=== PATIENT | male | born 1960 | race Caucasian/White ===

== ENCOUNTER → 2017-11-10 08:15 | Outpatient (POV) | payer OTHER, SELFPAY | PROVIDERS: Visit Provider Nurse Practitioner Acute Care | DX: Z00.00 Encounter for general adult medical examination without abnormal findings (principal) ==

== ENCOUNTER → 2018-04-20 10:02 | Outpatient (POV) | payer OTHER, SELFPAY ==
--- NOTE | 2018-04-20 10:10 | XR_ITS ---
XR knee LT 3V HISTORY: ITS.REASON: LEFT KNEE PAIN ORDERING PHYSICIAN: Concepción Russell PATIENT AGE: 57 years COMPARISON: None FINDINGS: No fracture or dislocation. No lytic or blastic change. Normal mineralization. No significant arthritic changes evident. No other significant findings. Incidental note is made of accessory center of ossification at the tibial tuberosity IMPRESSION: Negative Knee
== END ==
PROVIDERS: PCP Family Medicine; Visit Provider Nurse Practitioner Acute Care
DX: M25.562 Pain in left knee (principal)
CPT/HCPCS: 73562

== ENCOUNTER → 2018-04-27 07:44 | Outpatient (CLI) | payer OTHER, SELFPAY ==
--- NOTE | 2018-04-27 07:59 | US_ITS ---
US abdomen limited History:Right upper quadrant pain, abnormal liver function Ordering Physician:Concepción Russell Patient Age: 57 years Comparison:None Findings: Pancreas:Unremarkable. No obvious mass or abnormal fluid collection. No ductal dilatation Liver:There is a 15 x 15 mm hypoechoic area within the right hepatic lobe anteriorly not significantly changed. This is nonspecific. Right Kidney:Unremarkable. Normal size and echogenicity. No hydronephrosis Gallbladder:No gallstones, gallbladder wall thickening, pericholecystic fluid, or biliary dilatation. Small amount sludge versus concentrated bile noted in the gallbladder Impression: 1. No gallstones. Small amount of gallbladder sludge versus concentrated bile. No wall thickening or pericholecystic or biliary dilatation. 2. Stable hypoechoic lesion of the liver nonspecific
== END ==
PROVIDERS: PCP Family Medicine; Visit Provider Nurse Practitioner Acute Care
DX: R10.11 Right upper quadrant pain (principal); R94.5 Abnormal results of liver function studies; R93.3 Abnormal findings on diagnostic imaging of other parts of digestive tract
CPT/HCPCS: 76705

== ENCOUNTER → 2018-12-24 14:13 | Outpatient (CLI) | payer OTHER, SELFPAY ==
[2018-12-24 15:27] LABS: Anion Gap 16.7 mEq/L (5-15); Blood Urea Nitrogen 21 mg/dL (7-18); Calcium 9.8 mg/dL (8.5-10.1); Carbon Dioxide 24 mmol/L (21.0-32.0); Chloride 105 mmol/L (98-107); Creatinine,Serum 1.24 mg/dL (0.70-1.30); Estimated Glomerular Filt Rate 60 ml/min (>60); GFR (African American) 73 ML/MIN (>60); Glucose 101 mg/dL (74-106); Potassium 3.7 mmoL/L (3.5-5.1); Sodium 142 mmol/L (136-145)
== END ==
PROVIDERS: Visit Provider Internal Medicine Cardiovascular Disease
DX: R42 Dizziness and giddiness (principal); I25.10 Atherosclerotic heart disease of native coronary artery without angina pectoris; E78.49 Other hyperlipidemia; I11.9 Hypertensive heart disease without heart failure
CPT/HCPCS: 36415; 80048

== ENCOUNTER → 2019-11-01 16:19 | Outpatient (POV) | payer OTHER, SELFPAY | PROVIDERS: PCP Nurse Practitioner Family; Visit Provider Nurse Practitioner Family | DX: Z00.00 Encounter for general adult medical examination without abnormal findings (principal) ==

== ENCOUNTER → 2020-02-29 12:55 | Outpatient (POV) | payer OTHER, SELFPAY | PROVIDERS: PCP Family Medicine; Visit Provider Physician Assistant | DX: Z00.00 Encounter for general adult medical examination without abnormal findings (principal) ==

== ENCOUNTER → 2020-04-11 13:13 | Outpatient (POV) | payer OTHER, SELFPAY | PROVIDERS: PCP Family Medicine; Visit Provider Dermatology | DX: Z00.00 Encounter for general adult medical examination without abnormal findings (principal) ==

== ENCOUNTER → 2020-05-09 07:59 | Outpatient (POV) | payer OTHER, SELFPAY | PROVIDERS: Visit Provider Dermatology | DX: Z00.00 Encounter for general adult medical examination without abnormal findings (principal) ==

== ENCOUNTER → 2020-05-30 08:07 | Outpatient (POV) | payer OTHER, SELFPAY | PROVIDERS: Visit Provider Dermatology | DX: Z00.00 Encounter for general adult medical examination without abnormal findings (principal) ==

== ENCOUNTER → 2020-09-05 11:12 | Outpatient (POV) | payer OTHER, SELFPAY | PROVIDERS: Visit Provider Dermatology | DX: Z00.00 Encounter for general adult medical examination without abnormal findings (principal) ==

== ENCOUNTER → 2020-11-28 09:10 | Outpatient (POV) | payer OTHER, SELFPAY | PROVIDERS: Visit Provider Dermatology | DX: Z00.00 Encounter for general adult medical examination without abnormal findings (principal) ==

== ENCOUNTER → 2021-01-02 08:16 | Outpatient (POV) | payer OTHER, SELFPAY | PROVIDERS: Visit Provider Dermatology | DX: Z00.00 Encounter for general adult medical examination without abnormal findings (principal) ==

== ENCOUNTER → 2021-01-09 10:14 | Outpatient (CLI) | payer OTHER, SELFPAY ==
--- NOTE | 2021-01-09 10:18 | XR_ITS ---
PROCEDURE: XR SHOULDER RT MIN 2V CLINICAL INDICATION: bicept pain COMPARISON: No exams were available for comparison FINDINGS: No fracture or dislocation. No lytic or blastic change. There is normal mineralization. Mild osteoarthritic change involves the right acromioclavicular joint. Other findings:None. IMPRESSION: No acute finding. Mild osteoarthritis right AC joint Dictated by: Evangelist Barnes MD 01/09/2021 12:21 Evangelist Barnes MD in [place] 01/09/2021 12:21
== END ==
PROVIDERS: PCP Family Medicine; Visit Provider Orthopaedic Surgery
DX: M25.519 Pain in unspecified shoulder (principal)
CPT/HCPCS: 73030

== ENCOUNTER → 2021-02-13 08:22 | Outpatient (POV) | payer OTHER, SELFPAY | PROVIDERS: Visit Provider Dermatology | DX: Z00.00 Encounter for general adult medical examination without abnormal findings (principal) ==

== ENCOUNTER → 2021-04-17 07:51 | Outpatient (POV) | payer OTHER, SELFPAY | PROVIDERS: Visit Provider Dermatology | DX: Z00.00 Encounter for general adult medical examination without abnormal findings (principal) ==

== ENCOUNTER → 2021-07-17 15:17 | Outpatient (POV) | payer OTHER, SELFPAY | PROVIDERS: Visit Provider Dermatology | DX: Z00.00 Encounter for general adult medical examination without abnormal findings (principal) ==

== ENCOUNTER 2021-08-23 17:05 | Emergency (ER) | payer OTHER, SELFPAY ==
[2021-08-23 17:20] VITALS: BP 0/0; PULSE 0; RESP 0; TEMP -17.7; TEMP 0; O2SAT 0
== END 2021-08-23 17:21 | disposition home or self-care (01) ==
LOC: UTC 17:09
PROVIDERS: Emergency Provider Nurse Practitioner Family; PCP Family Medicine
DX: Z53.21 Procedure and treatment not carried out due to patient leaving prior to being seen by health care provider (principal)

== ENCOUNTER → 2021-08-23 17:17 | Outpatient (CLI) | payer OTHER, SELFPAY | PROVIDERS: PCP Family Medicine; Visit Provider Nurse Practitioner Family | DX: Z20.822 Contact with and (suspected) exposure to COVID-19 (principal) | CPT/HCPCS: C9803; U0003; U0005 ==

== ENCOUNTER 2021-08-30 14:06 | Emergency (ER) | payer OTHER, SELFPAY ==
[2021-08-30 15:57] VITALS: BP 143/81; PULSE 64; RESP 18; TEMP 36.7; O2SAT 98; BMI 31.6
--- NOTE | 2021-08-30 16:02 | HMH.EDUTC ---
[facility] [place] Disposition Clinical Impression: Cellulitis and abscess of lower extremity Disposition: Home, Self-Care Condition on Discharge: Good Instructions: Cellulitis, Clindamycin, Mupirocin Additional Instructions: *Start antibiotic(s) immediately and be sure to take as ordered for the FULL length of time although you may be feeling better or start to see improvement in the next 24-48 hours *Monitor closely. Outlined redness so that you can monitor easier. Follow up immediately for new or worsening symptoms including but not limited to redness, swelling, streaking from site fever or chills. *Warm compress 15 minutes 3-4 times day *Never squeeze or pop these on your own. Seek immediate medical attention next time this occurs *Monitor Temp. Tylenol every 4 hours as needed and ibuprofen every 6 hours as needed (as long as your primary care doctor has told you that it is ok to take both. For fever, aches, pain. ER if no less that 101 despite Tylenol and ibuprofen Follow up with your family doctor/primary care physician in the next 48-72 hours if no improvement Return if needed Straight to ER if any life threatening symptoms Prescriptions: clindamycin HCL [Cleocin HCl] 300 mg PO TID 7 Days #21 cap Transmission Status: Received by [facility] Mupirocin Calcium [Mupirocin 2% Cream 15gm] 1 applicatio TP TID 10 Days #15 gm Transmission Status: Received by [facility] Referrals: Kin Ren MD [Primary Care Provider] - As needed Time of Disposition: 16:34 Medical Decision Making - Tye Inquiry Pt receiving controlled substance: No Tye was queried for this patient: No Vital Signs: 08/30/21 15:57 Temperature 98.0 F Temperature Source Oral Pulse Rate [Right Radial] 64 Respiratory Rate 18 Blood Pressure [Right Arm] 143/81 H Blood Pressure Mean [Right Arm] 101 Blood Pressure Source [Right Arm] Automatic Cuff Blood Pressure Position [Right Arm] Sitting 02 Sat by Pulse Oximetry 98 Oxygen Delivery Method Room Air Orders (Tests/Meds): ORDERS Category Date Time Status Wound Culture and Gram Stain Stat Micro 08/30/21 16:36 Received [facility] [place] HPI - General Stated complaint: R leg bite/rash Time Seen by Provider: 08/30/21 16:02 Mode of Arrival: Ambulatory Source of Information: Patient Limitations: No Limitations Description of Symptoms (Recalled from Triage Doc. by RN): Pt stated that he has had a bite on back of right calf for the past 4 days. HEENT Symptoms (Recalled from RN notes): No Resp Symptoms (Recalled from RN notes): No Skin Symptoms (Recalled from RN notes): Yes (bite) MS Symptoms (Recalled from RN notes): No Functional Status (Recalled from RN notes): n/a - Related Data Home Medications Medication Instructions Recorded Confirmed aspirin 81 mg tablet,delayed 81 mg PO DAILY tab 11/12/17 07/03/21 release omega-3 fatty acids 500 mg capsule 1,000 mg PO DAILY cap 11/12/17 07/03/21 Saccharomyces boulardii 250 mg 250 mg PO DAILY cap 11/13/17 07/03/21 capsule psyllium husk (aspartame) 3.4 3.4 g PO DAILY 11/13/17 07/03/21 gram/5.8 gram oral powder vitamin E 800 unit capsule 800 unit PO DAILY cap 11/13/17 07/03/21 Alpha Lipoic Acid 400 mg PO DAILY 06/29/18 07/03/21 Lactobacills gasseri-Bifidobac cap PO DAILY cap 12/04/18 07/03/21 bifidum,longum 1.5 billion cell capsule bempedoic acid 180 mg-ezetimibe 10 1 tab PO DAILY 01/09/21 07/03/21 mg tablet hydroxychloroquine 200 mg tablet 200 mg PO DAILY 01/09/21 07/03/21 simvastatin 40 mg tablet 40 mg PO DAILY 01/09/21 07/03/21 ezetimibe 10 mg tablet 10 mg PO DAILY tab 06/01/21 07/03/21 Previous Rx's Medication Instructions Recorded propranolol 60 mg capsule,24 See Rx Instructions .ROUTE 02/05/21 hr,extended release .COMPLEX #90 cap losartan 100 mg tablet See Rx Instructions .ROUTE 05/09/21 .COMPLEX #90 tab hydrochlorothiazide 12.5 mg capsule See Rx Instructions .ROUTE 08/06/21 .COMPLEX #30 cap Mupirocin Calcium [
[2021-08-30 17:30] VITALS: BP 143/81; PULSE 64; RESP 18; TEMP 36.7; O2SAT 98
== END 2021-08-30 17:30 | disposition home or self-care (01) ==
PROVIDERS: Emergency Provider Nurse Practitioner; PCP Family Medicine
DX: L03.115 Cellulitis of right lower limb (principal); Z88.0 Allergy status to penicillin
CPT/HCPCS: 87070; 87077; 87186; 87205; 99202; G0463

== ENCOUNTER → 2021-10-16 08:01 | Outpatient (POV) | payer OTHER, SELFPAY | PROVIDERS: Visit Provider Dermatology | DX: Z00.00 Encounter for general adult medical examination without abnormal findings (principal) ==

== ENCOUNTER → 2021-10-17 12:33 | Outpatient (CLI) | payer OTHER, SELFPAY ==
[2021-10-18 09:37] LABS: Covid-19 Nasal PCR Sendout Lex POSITIVE
== END ==
PROVIDERS: PCP Family Medicine; Visit Provider Nurse Practitioner
DX: U07.1 COVID-19 (principal)
CPT/HCPCS: C9803; U0004; U0005

== ENCOUNTER → 2022-01-22 09:00 | Outpatient (POV) | payer OTHER, SELFPAY | PROVIDERS: Visit Provider Dermatology | DX: Z00.00 Encounter for general adult medical examination without abnormal findings (principal) ==

== ENCOUNTER → 2022-05-31 09:37 | Outpatient (CLI) | payer OTHER, SELFPAY ==
[2022-05-31 10:17] LABS: Alanine Aminotransferase 37 U/L (12-78); Albumin Level 4.6 g/dl (3.5-5.0); Alkaline Phosphatase 55 U/L (38-126); Aspartate Amino Transferase 32 U/L (17-59); Bilirubin,Direct 0.2 mg/dl (0.0-0.4); Bilirubin,Indirect 0.4 mg/dL (0.0-0.9); Bilirubin,Total 0.6 mg/dl (0.2-1.3); Bilirubin,Unconjugated 0.4 mg/dL (0.0-1.1); Chol/HDL Ratio 2.5 (1-3.5); Cholesterol 114 mg/dl (140-200); HDL Cholesterol 46 mg/dl (40-60); Triglycerides 95 mg/dl (30-150); VLDL Cholesterol 19 mg/dL (0-40)
[2022-05-31 10:28] LABS: Direct LDL Cholesterol 51.81 mg/dL (100-129)
== END ==
PROVIDERS: PCP Family Medicine; Visit Provider Internal Medicine Cardiovascular Disease
DX: I25.10 Atherosclerotic heart disease of native coronary artery without angina pectoris (principal); I11.9 Hypertensive heart disease without heart failure; E78.49 Other hyperlipidemia; Q24.5 Malformation of coronary vessels; G47.33 Obstructive sleep apnea (adult) (pediatric); K21.9 Gastro-esophageal reflux disease without esophagitis
CPT/HCPCS: 36415; 80061; 80076

== ENCOUNTER → 2023-08-01 09:17 | Outpatient (CLI) | payer OTHER, SELFPAY ==
--- NOTE | 2023-08-01 09:17 | MR_ITS ---
APPROVED REPORT Stock Clerk: CLINICAL INDICATION Chest pain, palpitations, dyspnea TECHNIQUE Image Acquisition: Cardiac magnetic resonance (CMR) was performed on Siemens Espree MRI 1.5T scanner. Software platform sequences were performed using the Siemens [email or web address] MR B19 platform. A set of three-plane, low-resolution, large [id number]-[id number] localizers were initially acquired. Then axial, coronal, sagittal TrueFISP, as well as axial HASTE images, were obtained. These were followed by gated TrueFISP breathold cinematic sequences obtained in the short axis with 8 mm slices and 2 mm gaps, 2-chamber (vertical long axis), 3-chamber, 4-chamber (horizontal long axis). A bolus of contrast was injected intravenously with first-pass sequences obtained in the short axis and four-chamber planes. After approximately 10 minutes, a TI elevator inspector sequence was performed to determine the optimal TI time. Using the optimized TI time, delayed contrast enhancement segmented inversion???recovery TurboFLASH sequences were obtained in the short axis, 2-chamber, 3-chamber, and 4-chamber projections. 2D-velocity phase mapping was performed. Functional parameters were calculated by offline analysis on an independent workstation ([employer], [employer]). Contrast: ProHance??? (Gadoteridol) FINDINGS MORPHOLOGY AND FUNCTION Left ventricle: The left ventricle is spade-shaped in appearance. The indexed left ventricular end-diastolic volume (LVEDVi) is 61 ml/m2 (reference range 57-105 ml/m2 in males, 56-96 ml/m2 in females). Normal left ventricular systolic function is present. There is increased left ventricular wall thickness (maximum 16.0 mm in the distal septal and apical LV murguia). There are no regional wall motion abnormalities noted. LVEF is calculated at 69% (reference range 57-77%). Right ventricle: The right ventricle is normal in size. The indexed right ventricular end-diastolic volume (RVEDVi) is 47 ml/m2 (reference range 61-121 ml/m2 in males, 48-112 ml/m2 in females). Normal right ventricular systolic function is present. RVEF is calculated at 59% (reference range 52-72% in males, 51-71% in females). Atria: The left atrium is normal in size. The maximum indexed left atrial volume is 37 ml/m2 (reference range 26-52 ml/m2 in males, 27-53 ml/m2 in females). The right atrium cavity is small. The maximum indexed right atrial volume is 13 ml/m2 (reference range 18-90 ml/m2). Aorta: The diameter of the aortic annulus is normal, measuring 27 mm (coronal view reference range 21-30 mm in males, 19-27 mm in females). The diameter of the aortic sinus is normal, measuring 35 mm (coronal view reference range 25-42 mm in males, 24-36 mm in females). The diameter of the sinotubular junction is normal, measuring 27 mm (coronal view reference range 18-32 mm in males, 18-28 mm in females). The diameters of the ascending and descending thoracic aorta are normal. Main pulmonary artery: The main pulmonary artery diameter is normal. Pericardium: The pericardial thickness is normal. The pericardial thickness measures 1.2 cm (normal < 4.0 cm). There is no pericardial effusion. VALVES The valvular morphologies in the visualized sequences appear normal. There is no significant valvular stenosis or regurgitation of the mitral, aortic, tricuspid, or pulmonic valve noted visually. Systolic anterior motion of the mitral valve is not visualized. Ratio of pulmonary to systemic flow, Qp:Qs ratio = 1.0 (normal < or = 1.2), demonstrating no evidence of hemodynamically significant shunt. TISSUE CHARACTERIZATION Resting Perfusion: Normal myocardial blood flow at rest. No evidence of resting hypoperfusion. Myocardial Fibrosis and/or edema: Normal gadolinium kinetics are present. No evide
--- NOTE | 2023-08-01 09:34 | XR_ITS ---
FINAL REPORT CLINICAL HISTORY: RULE OUT METAL FOREIGN BODY FOR MRI FINDINGS: Orbits Two views were obtained. No radiopaque foreign body is identified. The paranasal sinuses are well aerated. IMPRESSION: No foreign body identified. Reviewed, Interpreted and Dictated by Jamison Cartagena MD Transcribed by Mitra Ratliff Authenticated and [facility]
== END ==
PROVIDERS: PCP Family Medicine; Visit Provider Internal Medicine
DX: I11.9 Hypertensive heart disease without heart failure; I25.10 Atherosclerotic heart disease of native coronary artery without angina pectoris; G47.33 Obstructive sleep apnea (adult) (pediatric); K21.9 Gastro-esophageal reflux disease without esophagitis; Q24.5 Malformation of coronary vessels; R94.31 Abnormal electrocardiogram [ECG] [EKG]; Z87.891 Personal history of nicotine dependence; E78.49 Other hyperlipidemia
CPT/HCPCS: 70200; 75561; A9576

== ENCOUNTER → 2023-08-06 11:22 | Outpatient (CLI) | payer OTHER, SELFPAY | LOC: RT 11:22 | PROVIDERS: PCP Family Medicine; Visit Provider Internal Medicine | DX: R42 Dizziness and giddiness (principal) | CPT/HCPCS: 93225 ==

== ENCOUNTER → 2023-08-08 14:48 | Outpatient (CLI) | payer OTHER, SELFPAY | PROVIDERS: PCP Family Medicine; Visit Provider Internal Medicine | DX: R42 Dizziness and giddiness (principal) | CPT/HCPCS: 93270 ==

== ENCOUNTER → 2023-08-13 08:16 | Outpatient (CLI) | payer OTHER, SELFPAY ==
--- NOTE | 2023-08-13 | CA_ITS ---
APPROVED REPORT Exam: Exercise Treadmill Technologist: Blanca Peter Ht: 6 ft 0 in Wt: 233 lbs BSA: 2.27 m2 HR: 69 bpm BP: 122/75 mmHg Rhythm: NSR Indications: History of apical hypertrophic cardiomyopathy Medical History Medications: Aspirin,,,,, Simvastatin,,,,, Vitamin E,,,,, Losartan,,,,, HCTZ,,,,, Hydroxychloroquine,,,,, OmeGA 3,,,,, Alpha Lippic Acid,,,,, Ezetimibe,,,,, MiNOxidil,,,,, PSYLLIUM Husk,,,,, Stress Test Details Test: Elvin HR Resting HR: 76 bpm Max Heart Rate (APMHR): 160 bpm Max HR Achieved: 143 bpm Target HR (85% APMHR): 136 bpm % of APMHR: 89 Recovery HR: 93 bpm HR response to stress: Normal HR response to stress BP Resting BP: 122.0/75.0 mmHg Max BP: 164.0/72.0 mmHg Recovery BP: 132.0/80.0 mmHg BP response to stress: Normal blood pressure response to stress. ECG Resting ECG: Normal sinus rhythm, LVH with strain pattern Stress EC mm ST depression Arrhythmia: None Recovery ECG: Return to baseline within 5 minutes of recovery Recovery Arrhythmia: None Clinical Exercise duration: 10:21 min Highest Stage Achieved: Exercise capacity: 12.8 METs Overall Exercise Capacity for Age: Average Stress ECG Conclusion The patient was able to exercise for a total of 10 minutes, 21 seconds. He achieved a total of 12.8 METS. He has average exercise capacity compared to age and sex matched peers. He has normal HR and BP response to exercise. Symptoms: No chest pain. Arrhythmias/Ectopy: None ST-T Changes:[address] depression Conclusion: Baseline ECG demonstrates LVH with strain pattern. Nondiagnostic ECG at peak stress due to baseline abnormalities. Test Summary REST . . . . . . . Standing REST 06:12 0.0 0.0 76 . 122/ 75 . . Stage 1 01:00 10.0 1.7 90 . . . . Stage 1 02:00 10.0 1.7 102 . . . . Stage 1 03:00 10.0 1.7 102 . 148/ 74 . . Stage 2 01:00 12.0 2.5 109 . . . . Stage 2 02:00 12.0 2.5 114 . . . . Stage 2 03:00 12.0 2.5 115 . 164/ 72 . . Stage 3 01:00 14.0 3.4 123 . . . . Stage 3 02:00 14.0 3.4 131 . . . . Stage 3 03:00 14.0 3.4 136 . . . . Stage 4 01:00 16.0 4.2 141 . . . . Stage 4 01:21 16.0 0.0 143 . . . Stop exercise at 10:21 RECOVERY 01:00 0.0 0.0 112 . . . . RECOVERY 02:00 0.0 0.0 99 . . . . RECOVERY 03:00 0.0 0.0 91 . . . . RECOVERY 04:00 0.0 0.0 89 . . . . RECOVERY 05:00 0.0 0.0 88 . . . . RECOVERY 06:00 0.0 0.0 91 . . . . RECOVERY 07:00 0.0 0.0 93 . . . . RECOVERY 08:00 0.0 0.0 96 . 132/ 80 . . RECOVERY 08:10 0.0 0.0 91 . 132/ 80 . . Electronically signed by : Melba Allison MD 08/14/2023 23:34:08
--- NOTE | 2023-08-13 | CA_ITS ---
APPROVED REPORT EXAM: Comprehensive 2D, Doppler, and color-flow Echocardiogram Curriculum Facilitator: Debbie Hayes RVT Ht: 6 ft 0 in Wt: 234lbs BSA: 2.28 BP: 113/78 mmHg Rhythm: 78 Indications: Apical HCM, stress echo to evaluate LVOT Echo Procedure The patient underwent an Exercise Stress Test using the Elvin Protocol. Blood pressure, heart rate, and EKG were monitored. An Echocardiogram was performed by armored service technician in four stages in quad fashion. At peak stress, four selected images were obtained and placed side by side with resting images for comparison. Stress Test Details Test: Exercise stress testing was performed using a Elvin protocol. HR Resting HR: 76 bpm Max Heart Rate (APMHR): 160 bpm Max HR Achieved: 143 bpm Target HR (85% APMHR): 136 bpm % of APMHR: 89 Recovery HR: 93 bpm HR response to stress: Normal HR response to stress BP Resting BP: 122/75 mmHg Max BP: 164/72 mmHg BP response to stress: Normal blood pressure response to stress. ECG Resting ECG: Normal sinus rhythm, LVH with strain pattern Stress EC mm ST depression Arrhythmia: None Recovery ECG: Return to baseline within 5 minutes of recovery Recovery Arrhythmia: None Echo Findings The Pre-Stress Echocardiogram showed normal left ventricular contractility with an estimated Ejection Fraction of about 60%. The pre-stress echocardiogram demonstrated no evidence of systolic anterior motion (ANGELICA) of the mitral valve leaflets. There is no LVOT gradient at rest or with Valsalva. The post-stress echocardiogram demonstrated no provokable LVOT gradient at peak stress. Other Information Study Quality: Adequate Conclusion Stress echo in the setting of recent diagnosis of apical HCM to evaluate for LVOT obstruction. Average exercise capacity compared to age and sex matched peers. Normal HR and BP response to exercise. No LVOT gradient at rest or with Valsalva. No provokable LVOT gradient at peak stress. Electronically signed by : Melba Allison MD 08/14/2023 23:37:01
== END ==
PROVIDERS: PCP Family Medicine; Visit Provider Physician Assistant
DX: I42.9 Cardiomyopathy, unspecified (principal)
CPT/HCPCS: 93017; 93018; 93350